=== PATIENT | male | born 1975 | race Caucasian/White ===

== ENCOUNTER 2016-09-28 23:30 | Emergency (ER) | payer OTHER ==
[~2016-09-28 23:30] MED LIST: LISINOPRIL-HCTZ1 T13 PO; NIFEDIPINE ER90 MG PO; PROVENTIL HFA6.7 GM INH; WELLBUTRIN SR150 MG PO
== END 2016-09-29 01:32 | disposition left against medical advice (07) ==
LOC: D.ER 23:30
DX: M54.6 Pain in thoracic spine (principal)

== ENCOUNTER 2017-03-31 05:40 | Day surgery (SDC) | payer OTHER ==
[2017-03-30 15:50] LABS: HEMATOCRIT 47.9 % (42.0-54.0); HEMOGLOBIN 16.5 g/dL (13.5-17.5); MCH 34.8 pg (26.0-34.0); MCHC 34.4 g/dL (31.0-37.0); MCV 101.1 fL (80.0-100.0); MEAN PLATELET VOLUME 11.4 fL (7.4-10.4); RBC 4.74 10x6/uL (4.20-6.10); RDW 14.6 % (11.5-14.5); WBC 8.9 10x3/uL (4.8-10.8)
[~2017-03-31 05:40] MED LIST changes: +PRILOSEC10 M1 PO
[2017-03-31] MEDS ORDERED: ALEVE-D SINUS1 EACH PO (08:36)
[2017-03-31] MEDS ORDERED: METHOTREXATE2.5 MG PO (08:38)
[2017-03-31] MEDS ORDERED: TESTOSTERONE IM (08:40)
[2017-03-31] MEDS ORDERED: TRAZODONE HCL50 MG PO (08:41)
[2017-03-31] MEDS ORDERED: FOLIC ACID1 MG PO (08:42)
[2017-03-31] MEDS ORDERED: PREDNISONE5 MG PO (08:43)
[2017-03-31] MEDS ORDERED: LOTREL 10-40 M1 EACH PO (08:44)
[2017-03-31] MEDS ORDERED: CHLORTHALIDONE25 MG PO (08:48)
[2017-03-31] MEDS ORDERED: EFFEXOR75 MG PO (08:50)
[2017-03-31 08:53] VITALS: BP 127/63; BMI 35.9
[2017-03-31] MEDS ORDERED: HYDROCODONE-APA1 TAB PO (09:02)
[2017-03-31] MEDS ORDERED: PERCOCET 5-3251 TAB PO (11:43)
--- NOTE | 2017-03-31 12:51 | OP ---
PATIENT NAME: ANKITA JULIEN MEDICAL RECORD: [id number] :71 LOCATION:[facility] ADMISSION DATE: SURGEON: MERCEDES HAWKINS DO DATE OF OPERATION: 03/31/2017 PROCEDURE PERFORMED: Removal of painful hardware, right proximal tibia. PREOPERATIVE DIAGNOSIS: Painful hardware, right proximal tibia. POSTOPERATIVE DIAGNOSIS: Painful hardware, right proximal tibia. INDICATIONS: Mr. Julien is a 41-year-old male who underwent ACL reconstruction some years ago. He tolerated well. However, at this point for the past few months, he has had a prominent hardware over the proximal and medial tibia where the graft fixation was. He said it feels like the hardware is out and is loose and indeed when he came to the clinic that was the case. X-rays were taken in the clinic and this is a Bioscrew, which does not have any metal in it, so it was radiopaque; however, he could feel it on the skin. He said this bothered him for quite some time and wanted it removed. He was scheduled for surgery today. DESCRIPTION OF PROCEDURE: Mr. Julien was taken back to the operative suite, given a general anesthetic and LMA was placed, given 2 grams Ancef preoperatively. Once this was done, the right leg was prepped and draped in sterile fashion. A timeout was performed and everyone was in agreement with the correct side, site, patient, and surgery. Once this was done, a small incision was made over the previous incision where the hardware was prominent and a careful dissection was made down. Once the incision was made with a knife down to the hardware itself, a hemostat was used to grab it and remove it. Once it was removed, the wound was irrigated and assured. There were no other pieces of hardware that were prominent and the wound was then closed using 4-0 Monocryl in a horizontal mattress fashion. Two stitches were placed over the incision. Once this was done, Adaptic, 4 x 4, and Tegaderm were placed over this site. The patient was awakened and taken to recovery in stable condition. Blood loss was minimal. TRANSINT:[id number] Voice Confirmation ID: [id number] DOCUMENT ID: [id number] MERCEDES HAWKINS, at 1251 CC: [id number] DICTATION DATE: 03/31/17 1141 VENEER STAPLER: 03/31/17 1202 [facility] [address] [id number]
--- NOTE | 2017-03-31 12:59 | NUR ---
IV DC WITH CATHER TIP INTACT
--- NOTE | 2017-03-31 13:04 | NUR ---
IV DC WITH CATHER TIP INTACT
== END 2017-03-31 13:21 | disposition home or self-care (01) ==
LOC: D.OPS 05:40 → D.PAN 09:30 → D.OPS 09:30
PROVIDERS: Anesthesiology
DX: T84.84XA Pain due to internal orthopedic prosthetic devices, implants and grafts, initial encounter (principal); Z01.812 Encounter for preprocedural laboratory examination